=== PATIENT | male | born 1985 | race American Indian/Alaskan Native ===

== ENCOUNTER 2017-07-15 21:09 | Emergency (ER) | payer SELFPAY ==
[2017-07-15 21:21] VITALS: BP 132/75
[2017-07-15] MEDS ORDERED: MOTRIN PO ONE (21:24)
--- NOTE | 2017-07-16 00:12 | Emergency Department Report ---
HPI - General Chief Complaint: Allergic Reaction - HPI HPI: DELETE CHART see MSE NOTE ED Past Medical Hx - Past Medical History Additional medical history: Seasonal Allergies. - Social History Smoking Status: Current Every Day Smoker Substance Use Type: None - Medications Home Medications: Home Medications Medication Instructions Recorded Confirmed Last Taken Type No Known Home Medications [No 07/15/17 07/15/17 Unknown History Reported Home Medications] ED Review of Systems ROS: Stated complaint: ALLERGIES Other details as noted in HPI Physical Exam - Physical Exam Vital Signs: Vital Signs 07/15/17 21:15 Temperature 98 F Pulse Rate 89 Respiratory 16 Rate Blood Pressure 132/75 O2 Sat by Pulse 98 Oximetry ED Course Vital Signs 07/15/17 21:15 Temperature 98 F Pulse Rate 89 Respiratory 16 Rate Blood Pressure 132/75 O2 Sat by Pulse 98 Oximetry Critical care attestation.: If time is entered above; I have spent that time in minutes in the direct care of this critically ill patient, excluding procedure time. ED Disposition Clinical Impression: Seasonal allergies Disposition: MED SCREENING EXAM-LEFT Is pt being admited?: No Condition: Stable
--- NOTE | 2017-07-16 00:32 | Emergency Department Report ---
Chief Complaint: Allergic Reaction Stated Complaint: ALLERGIES - HPI History of Present Illness: 31-year-old male who states he has an allergy to pollen which is causing and itching and runny eyes, stuffy and runny nose, sneezing, cough, and sinus congestion. He is not taking any medication. 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 No complaints of fever. All fingers sneezing only. - ROS Review of Systems: as per hpi no fever - Exam Vital Signs: Vital Signs 07/15/17 21:15 Temperature 98 F Pulse Rate 89 Respiratory 16 Rate Blood Pressure 132/75 O2 Sat by Pulse 98 Oximetry Physical Exam: Nasal congestion,Lungs clear to auscultation, watery eyes on exam. No rash or difficulty breathing MSE screening note: Focused history and physical exam performed. Due to findings the following was ordered: I advised patient to monitor pollen count Make sure his filters are changed regularly Avoid opening windows and cars were home consider air purifier, central air fan to filter pollen out of air at home. Try [id number] sinus/allergy medication Patient declined further treatment after co-pay request ED Disposition for MSE Condition: Stable Referrals: NAOMI THORNE MD [Primary Care Provider] - 3-5 Days
== END 2017-07-16 00:42 | disposition left against medical advice (07) ==
LOC: ED 21:09
DX: T78.40XA Allergy, unspecified, initial encounter (principal); Z53.21 Procedure and treatment not carried out due to patient leaving prior to being seen by health care provider; X58.XXXA Exposure to other specified factors, initial encounter; Y93.89 Activity, other specified; Y92.89 Other specified places as the place of occurrence of the external cause; Y99.8 Other external cause status